=== PATIENT | male | born 1975 | race Caucasian/White ===

== ENCOUNTER 2024-03-15 11:16 | Day surgery (SDC) | payer BC ==
[2024-03-11 13:02] VITALS: BMI 30.4
[2024-03-15 11:56] VITALS: RESP 18
[2024-03-15 13:21] VITALS: TEMP 97.4
[2024-03-15 13:35] VITALS: BP 106/66; PULSE 56
== END 2024-03-15 13:35 | disposition home or self-care (01) ==
LOC: FASU-ENDO 11:16
PROVIDERS: ATTEND Internal Medicine Gastroenterology
PROC: 0DJD8ZZ Inspection of Lower Intestinal Tract, Via Natural or Artificial Opening Endoscopic (ICD-10-PCS; principal; 2024-03-15 12:46)
DX: Z12.11 Encounter for screening for malignant neoplasm of colon (principal); K64.1 Second degree hemorrhoids; K64.8 Other hemorrhoids
CPT/HCPCS: 88305-TC